=== PATIENT | male | born 1995 | race Caucasian/White ===

== ENCOUNTER → 2021-02-13 | Outpatient (REF) ==
--- NOTE | 2021-02-13 10:25 | REP ---
INDICATION: SOB. COMPARISON: None. FINDINGS: The superior mediastinal structures are midline. The cardiac silhouette is unremarkable in size, shape, and position. The diaphragmatic surfaces of the lungs are regular, and the costophrenic angles are clear. The pulmonary lewis are clear. The imaged osseous structures are intact. IMPRESSION: There is no acute cardiopulmonary disease. <Electronically signed by Kraig Kruger > 02/13/21 1020
== END ==
LOC: M PLAIMG 09:53
PROVIDERS: ATTEND Internal Medicine
DX: R06.02 Shortness of breath (principal)

== ENCOUNTER 2023-11-20 14:46 | Emergency (ER) | payer OTHER ==
[~2023-11-20] VITALS: Ht 175.3 cm; Wt 98.1 kg
[2023-11-20 14:46] VITALS: TEMP 99.7
[2023-11-20] MEDS ORDERED: ZOLO100T PO (15:12)
[2023-11-20] MEDS ORDERED: ADDE30CA3 PO (15:12)
[2023-11-20] MEDS: ONDANSETRON 4MG 2ML VIAL IV ONE (17:01)
[2023-11-20] MEDS: MORPHINE 4 MG/ML 1ML VIAL IV ONE ×3 (17:02→19:04)
[2023-11-20] MEDS ORDERED: ISOVUE-370 76% 100ML VIAL As Ordered ONE (17:09)
[2023-11-20 17:20] LABS: BASO # 0.1 10^3/uL (0.0-0.2); BASO % 0.4 % (0.0-1.0); EOS % 0.1 % (0.0-3.0); HEMATOCRIT 44.9 % (42.0-52.0); HEMOGLOBIN 15.5 g/dl (13.5-17.5); LYMPH # 1.7 10^3/uL (1.5-5.0); LYMPH % 10.3 % (24.0-44.0); MEAN CORPUSCULAR HEMOGLOBIN 29.8 pg (27.0-33.0); MEAN CORPUSCULAR HGB CONC 34.5 g/dl (32.0-36.5); MEAN CORPUSCULAR VOLUME 86.2 fl (80.0-96.0); MONO # 1.2 10^3/uL (0.0-0.8); MONO % 7.3 % (2.0-8.0); NEUTROPHILS # 13.4 10^3/uL (1.5-8.5); NEUTROPHILS % 81.4 % (36.0-66.0); PLATELET COUNT, AUTOMATED 274 10^3/uL (150-450); RED BLOOD COUNT 5.21 10^6/uL (4.30-6.10); WHITE BLOOD COUNT 16.5 10^3/uL (4.0-10.0)
[2023-11-20 17:27] LABS: ERYTHROCYTE SEDIMENTATION RATE 56 mm/hr (0-15)
[2023-11-20 17:38] LABS: C REACTIVE PROTEIN QUANTITATIV 9.3 MG/DL (<1.0)
[2023-11-20 17:40] LABS: ALBUMIN 3.8 G/DL (3.2-5.2); BILIRUBIN,DIRECT 0.5 MG/DL (<0.4); BILIRUBIN,TOTAL 1.4 MG/DL (0.3-1.2)
[2023-11-20 17:50] LABS: PROCALCITONIN 0.09 ng/ml
[2023-11-20] MEDS: LIDOCAINE W/EPINEPHRINE 1% 20ML VIAL SC ONE (18:10)
[2023-11-20] MEDS: AUGMENTIN 875 MG TAB PO ONE (18:12)
[2023-11-20] MEDS: LORazepam 2 MG/ML 1ML VIAL IV STA (18:47)
[2023-11-20] MEDS ORDERED: AMOX875T2 PO (19:45)
[2023-11-20] MEDS ORDERED: HYDR-3713 PO (19:45)
[2023-11-20 20:08] VITALS: BP 117/59; O2SAT 95
== END 2023-11-20 20:10 | disposition home or self-care (01) ==
LOC: M ED 14:46
DX: K61.0 Anal abscess (principal); K76.0 Fatty (change of) liver, not elsewhere classified; R16.1 Splenomegaly, not elsewhere classified; Z79.2 Long term (current) use of antibiotics; Z79.1 Long term (current) use of non-steroidal anti-inflammatories (NSAID); Z79.899 Other long term (current) drug therapy
CPT/HCPCS: 36415; 46050; 74177; 80047; 80076; 83605; 83690; 84145; 85025; 85652; 86140; 87040; 87070; 87077; 87186; 96374; 96375; 96376; 99284; J2060; J2405; Q9967

== ENCOUNTER 2024-09-04 22:08 | Inpatient (IN) | payer OTHER ==
[~2024-09-04] VITALS: Ht 175.3 cm; Wt 100.5 kg
[~2024-09-04 22:08] MED LIST: ADDE30CA3 PO; AMOX875T2 PO; HYDR-3713 PO; ZOLO100T PO
[2024-09-04 22:56] LABS: HEMATOCRIT 50.7 % (42.0-52.0); HEMOGLOBIN 17.4 g/dl (13.5-17.5); MEAN CORPUSCULAR HEMOGLOBIN 29.5 pg (27.0-33.0); MEAN CORPUSCULAR HGB CONC 34.3 g/dl (32.0-36.5); MEAN CORPUSCULAR VOLUME 85.9 fl (80.0-96.0); PLATELET COUNT, AUTOMATED 329 10^3/uL (150-450); WHITE BLOOD COUNT 16.5 10^3/uL (4.0-10.0)
[2024-09-04 23:43] LABS: ETHYL ALCOHOL (ETHANOL) < 0.003 % (0.000-0.010)
[2024-09-04 23:45] LABS: ALBUMIN 4.4 G/DL (3.2-5.2); ALKALINE PHOSPHATASE 66 U/L (40-129); ALT/SGPT 68 U/L (7.0-40); AST/SGOT 30 U/L (<34); BILIRUBIN,DIRECT 0.2 MG/DL (<0.4); BILIRUBIN,TOTAL 0.7 MG/DL (0.3-1.2); BLOOD UREA NITROGEN 9 MG/DL (9-23); CALCIUM LEVEL 9.6 MG/DL (8.5-10.1); CARBON DIOXIDE LEVEL 26 MMOL/L (20-31); CHLORIDE LEVEL 106 MMOL/L (98-107); CREATININE FOR GFR 0.99 MG/DL (0.70-1.30); GLOMERULAR FILTRATION RATE > 90.0 (>60); GLUCOSE, FASTING 88 MG/DL (60-100); POTASSIUM SERUM 4.2 MMOL/L (3.5-5.1); SALICYLATE LEVEL < 3.0 MG/DL (<30); SODIUM LEVEL 142 MMOL/L (136-145); TOTAL PROTEIN 7.5 G/DL (5.7-8.2)
[2024-09-04 23:46] LABS: THYROID STIMULATING HORMONE 0.954 uIU/ML (0.55-4.78)
[2024-09-04 23:53] LABS: AMPHETAMINES LEVEL URINE NEGATIVE (NEGATIVE); BARBITURATES URINE NEGATIVE (NEGATIVE); BENZODIAZEPINES URINE NEGATIVE (NEGATIVE); CANNABINOIDS URINE NEGATIVE (NEGATIVE); COCAINE METABOLITE URINE NEGATIVE (NEGATIVE); METHADONE URINE NEGATIVE (NEGATIVE); OPIATES URINE NEGATIVE (NEGATIVE); PHENCYCLIDINE URINE NEGATIVE (NEGATIVE)
[2024-09-05] MEDS ORDERED: MOM 30ML SUSPENSION UDC PO PRN (01:50)
[2024-09-05] MEDS ORDERED: MAALOX 30 ML SUSP *UDC PO PRN (01:50)
[2024-09-05] MEDS ORDERED: diphenhydrAMINE 25MG CAP PO PRN (01:50)
[2024-09-05] MEDS ORDERED: ACETAMINOPHEN 325 MG TAB PO PRN (01:50)
[2024-09-05] MEDS ORDERED: traZODone 50 MG TAB PO PRN (01:50)
[2024-09-05] MEDS ORDERED: IBUPROFEN 400MG TAB PO PRN (01:50)
[2024-09-05] MEDS ORDERED: EQ H1PAD EX (02:35)
[2024-09-05] MEDS ORDERED: ACET500T15 PO (02:35)
[2024-09-05] MEDS ORDERED: NEOM28OI27 TOP (02:35)
[2024-09-05] MEDS ORDERED: VITA200038 PO (02:35)
[2024-09-05] MEDS ORDERED: HOME MED LIST COMPLETE! XX SCH (02:35)
[2024-09-05] MEDS ORDERED: PRAZ1CAP PO (02:35)
[2024-09-05 02:41] VITALS: BP 138/81; TEMP 97.5; O2SAT 97
[2024-09-05] MEDS ORDERED: ACETAMINOPHEN 500 MG TAB PO PRN (08:20)
[2024-09-05] MEDS ORDERED: OLANZapine ORAL DISINTEGRATING TAB 5MG PO PRN (08:20)
[2024-09-05] MEDS ORDERED: NICOTINE POLACRILEX 2 MG GUM PO PRN (08:35)
[2024-09-05 15:46] VITALS: BP 132/71; TEMP 97.3; O2SAT 98
[2024-09-05] MEDS: PRAZOSIN 1 MG CAP PO SCH (20:47)
[2024-09-05] MEDS: SERTRALINE 100 MG TAB PO SCH (20:47)
[2024-09-06 06:23] VITALS: BP 123/66; TEMP 97.3; O2SAT 96
[2024-09-06 15:31] VITALS: BP 137/75; TEMP 96.9; O2SAT 96
[2024-09-07 06:25] VITALS: BP 132/81; TEMP 97.3; O2SAT 96
[2024-09-07 15:59] VITALS: BP 140/90; TEMP 97.1; O2SAT 99
[2024-09-07 20:52] VITALS: BP 140/90
[2024-09-08 06:28] VITALS: BP 114/70; TEMP 97; O2SAT 96
== END 2024-09-08 13:12 | disposition home or self-care (01) | DRG 882 ==
LOC: M ED 22:08 → M ED INP 09-05 01:48 → M PSY 09-05 02:49
PROVIDERS: ADMIT Psychiatry & Neurology Neurology; ATTEND Psychiatry & Neurology Psychiatry
DX: F43.23 Adjustment disorder with mixed anxiety and depressed mood (principal); F41.1 Generalized anxiety disorder; Z79.899 Other long term (current) drug therapy; Z63.5 Disruption of family by separation and divorce; F17.290 Nicotine dependence, other tobacco product, uncomplicated; F90.9 Attention-deficit hyperactivity disorder, unspecified type